=== PATIENT | female | born 1985 | race Hispanic/Latino ===

== ENCOUNTER 2019-05-12 12:58 | Emergency (ER) | payer BC ==
[2019-05-12] MEDS ORDERED: Adacel (T-DAP) 0.5 ML SYRINGE ONE (14:58)
[2019-05-12] MEDS ORDERED: Silver Sulfadiazine 1% Cream 50 GM JAR ONE (14:59)
== END 2019-05-12 15:25 | disposition home or self-care (01) ==
LOC: ERS 12:58
DX: T21.22XA Burn of second degree of abdominal wall, initial encounter (principal); Z23 Encounter for immunization; W39.XXXA Discharge of firework, initial encounter
CPT/HCPCS: 90471; 90715

== ENCOUNTER 2019-08-19 15:57 | Emergency (ER) | payer BC | END 2019-08-19 17:15 | disposition home or self-care (01) | LOC: ERS 15:57 | DX: M54.6 Pain in thoracic spine (principal); E11.9 Type 2 diabetes mellitus without complications | CPT/HCPCS: 99281 ==